=== PATIENT | male | born 1995 | race Caucasian/White ===

== ENCOUNTER 2018-11-09 17:37 | Emergency (ER) | payer SELFPAY ==
[~2018-11-09] VITALS: Ht 172.7 cm; Wt 58.4 kg
[2018-11-09 17:54] VITALS: Ht 172.7 cm; Wt 58.4 kg
--- NOTE | 2018-11-09 20:49 | ERD ---
ER Documentation Chief Complaint Chief Complaint pt bib self with penile discharge since yesterday HPI This is a 23-year-old sexually active male who presents to the ED with complaints of "milky white" discharge from the tip of his penis since 2 days ago. Patient also reports pain at the tip of his penis when urinating. Denies any frequency, urgency or hematuria. Denies any fevers, chills, nausea, vomiting, abdominal pain. Patient states he had similar symptoms about a year ago and was diagnosed with a bladder infection. He states today symptoms are the same. Patient also reports unprotected sexual intercourse with 2 different females 2 days ago. He states his symptoms started the next day. He denies any history or known exposure to STI's. He reports to marijuana and alcohol use but otherwise denies any illicit drug use. ROS All systems reviewed and are negative except as per history of present illness. Medications Home Meds Active Scripts Cephalexin* (Keflex*) 500 Mg Capsule, 500 MG PO BID for 7 Days, CAP Prov:RADHA ARZOLA PA-C 11/09/18 Allergies Allergies: Coded Allergies: nut - unspecified (Verified Allergy, Unknown, 11/09/18) PMhx/Soc Medical and Surgical Hx: pt denies Medical Hx, pt denies Surgical Hx History of Surgery: No Anesthesia Reaction: No Hx Neurological Disorder: No Hx Respiratory Disorders: No Hx Cardiac Disorders: No Hx Psychiatric Problems: No Hx Miscellaneous Medical Probl: No Hx Alcohol Use: Yes (Social) Hx Substance Use: Yes ([place] Smoker) Hx Tobacco Use: Yes (Cigarettes) Smoking Status: Former smoker Physical Exam Vitals Vital Signs Date Temp Pulse Resp B/P (MAP) Pulse Ox O2 O2 Flow FiO2 Time Delivery Rate 11/09/18 97.7 81 20 128/65 99 Room Air 22:50 (86) 11/09/18 97.6 86 20 144/62 97 17:54 (89) Physical Exam Const: No acute distress Head: Atraumatic Eyes: Normal Conjunctiva ENT: Normal External Ears, Nose and Mouth. Neck: Full range of motion. No meningismus. Resp: Clear to auscultation bilaterally Cardio: Regular rate and rhythm, no murmurs Abd: Soft, non tender, non distended. Normal bowel sounds Exam: Scrotum: Normal Hernia: None Testes/Epid: Non-tender w/ normal lie Cremaster: Reflex intact Lymph: No inguinal lymphadenopathy Discharge: None Skin: No petechiae or rashes Back: No midline or flank tenderness Ext: No cyanosis, or edema Neur: Awake and alert Psych: Normal Mood and Affect Results 24 hrs Laboratory Tests Test 11/09/18 20:33 Urine Color YELLOW Urine Clarity CLOUDY Urine pH 8.0 Urine Specific [place] 1.018 Urine Ketones NEGATIVE mg/dL Urine Nitrite NEGATIVE mg/dL Urine Bilirubin NEGATIVE mg/dL Urine Urobilinogen 1+ mg/dL Urine Leukocyte Esterase 1+ Elva/ul Urine Microscopic RBC 7 /HPF Urine Microscopic WBC 77 /HPF Urine Amorphous Crystals FEW /HPF Urine Bacteria FEW /HPF Urine Hemoglobin NEGATIVE mg/dL Urine Glucose NEGATIVE mg/dL Urine Total Protein NEGATIVE mg/dl Current Medications Medications Dose Sig/Meenakshi Start Time Status Last (Trade) Ordered Route PRN Stop Time Admin Dose Reason Admin Ceftriaxone 250 mg ONCE ONCE 11/09/18 DC 11/09/18 Sodium IM 23:00 11/09/18 22:46 (Rocephin) 23:00 1,000 mg ONCE ONCE 11/09/18 DC 11/09/18 Azithromycin PO 23:00 11/09/18 22:45 (Zithromax) 23:00 Procedures/MDM EMERGENT LABS AND DIAGNOSTIC STUDIES: Lab Results above were reviewed and interpreted by me as below. UA: 1+ Leuks, 77 WBC, 7 RBC GC/CT: pending Nursing Notes Reviewed. Previous Medical Records requested via the Electronic Health Record. EMERGENCY DEPARTMENT COURSE / MEDICAL DECISION MAKING: This is a 23 year old M who presents with penile discharge status post unprotected sexual intercourse. UA with pyuria and hematuria, suspicious for UTI. GC/CT pending at time of discharge. I cannot definitively rule out STI and given pt's at risk behavior, he was treated prophylactically with Rocephin and Azithromycin here. He was discharged with a prescription for Keflex for his UTI. I recommended safe sexual practices. Pt was discharged home in stable conditi on. He was told to follow up with is PCP in 2 days, otherwise return to the ED for any new or worsening symptoms. Prior to discharge, patients vital signs have been reviewed PRESCRIPTIONS: Keflex SPECIALIST FOLLOW UP RECOMMENDED: None Patient has been advised to follow up with primary care in 1-2 days. Departure Diagnosis: Primary Impression: UTI (urinary tract infection) Urinary tract infection type: acute cystitis Hematuria presence: with hematuria Qualified Codes: N30.01 - Acute cystitis with hematuria Additional Impressions: High risk sexual behavior High risk sexual behavior type: heterosexual Qualified Codes: Z72.51 - High risk heterosexual behavior Penile discharge Condition: Stable Patient Instructions: Older Adults and STDs, Understanding Urinary Tract Infections (UTIs) [facility]: [facility] RADHA ARZOLA PA-C Nov 09, 2018 20:49
[2018-11-09] MEDS ORDERED: CEPH-443 PO (22:37)
[2018-11-09 22:50] VITALS: BP 128/65; PULSE 81; RESP 20
[2018-11-09] MEDS ORDERED: CEFTRIAXONE 250 MG INJ IM ONE (23:00)
[2018-11-09] MEDS ORDERED: AZITHROMYCIN 250 MG TAB PO ONE (23:00)
== END 2018-11-09 22:50 | disposition home or self-care (01) ==
LOC: FTE 17:37
DX: N30.01 Acute cystitis with hematuria (principal); Z72.51 High risk heterosexual behavior; Z87.891 Personal history of nicotine dependence
CPT/HCPCS: 81001; 87591; 96372; 99284; J0696